=== PATIENT | female | born 1945 | race Caucasian/White ===

== ENCOUNTER 2019-10-01 05:48 | Inpatient (IN) ==
--- NOTE | 2019-10-01 06:19 | EKG Report ---
Test Performed on : 10/01/2019 06:13:20 AM Test Reason : WEAKNESS Blood Pressure : / mmHG Vent. Rate : 062 BPM Atrial Rate : 062 BPM P-R Int : 202 ms QRS Dur : 088 ms QT Int : 446 ms P-R-T Axes : 054 -01 012 degrees QTc Int : 452 ms Normal sinus rhythm. Septal infarct (cited on or before 14-AUG-2016) Abnormal ECG When compared with ECG of 05-OCT-2018 11:29, Questionable change in initial forces of Anterior leads Nonspecific T wave abnormality now evident in Inferior leads Unconfirmed Result
[2019-10-01] MEDS ORDERED: NS 1,000 ML IV ONE (07:16)
[2019-10-01] MEDS ORDERED: SOLU-MEDROL IV ONE (07:16)
[2019-10-01] MEDS ORDERED: ZITHROMAX 500 MG/NS 500 MG/250 ML IVPB IV ONE (07:16)
[2019-10-01] MEDS ORDERED: ROCEPHIN 1 GM in NS 50 ML IV ONE (07:16)
[2019-10-01] MEDS ORDERED: DUONEB (A & A) INH ONE (07:16)
[2019-10-01 07:20] LABS: BASO# 0.01 X1000 (0.0-0.2); BASO% 0.2 % (0.0-0.8); EOS# 0.13 X1000 (0.0-0.7); EOS% 2.6 % (0.0-10.0); HEMATOCRIT 35.4 % (37.0-47.0); LYMPH# 0.63 X1000 (1.2-3.4); LYMPH% 12.5 % (20.5-51.1); MCH 31.5 PG (27-31); MCHC 31.1 g/dL (33-37); MCV 101.4 FL (81-99); MONO# 0.15 X1000 (0.11-0.59); MPV 10.4 FL (7.4-10.4); NEUT# 4.13 X1000 (1.4-6.5); NEUT% 81.7 % (42.2-75.2); PLT 126 X1000 (130-400); RBC 3.49 XMIL (4.2-5.4); RDW 13.5 % (11.5-14.5); WBC 5.05 X1000 (4.8-10.8)
[2019-10-01 07:58] LABS: BE 0.8 mmoll (-3.0-3.0); BLOOD TYPE ARTERIAL; HCO3-(ACT) 25.3 mmoll (20.0-26.0); METHB 0.6 % (0.0-1.5); O2(CT) 11.3 mL/dL (15.0-23.0); PCO2(98.6) 50 mmHg (35-45); SAMPLE BLOOD; SAO2 86.7 % (95.0-100.0); THB 9.5 g/dL (11.5-17.4); pH(98.6) 7.34 (7.35-7.45)
[2019-10-01 07:59] LABS: ALLEN TEST YES; MODALITY CANNULA
[2019-10-01 08:01] LABS: O2HB 84.4 % (95.0-99.0); PO2(98.6) 47 mmHg (60-100)
[2019-10-01 08:05] LABS: CALCIUM 9.6 mg/dL (8.8-10.2); CREATININE 1.8 mg/dL (0.5-0.9); POTASSIUM 4.6 mmol/L (3.5-5.1)
--- NOTE | 2019-10-01 08:31 | PROVIDER DOCUMENTATION ---
HPI-Respiratory General - General Chief Complaint: Cold Symptoms Stated Complaint: "POSS PNA" Time Seen by Provider: 10/01/19 07:04 Source: patient, family Allergies/Adverse Reactions: Patient Allergies Allergy/AdvReac Type Severity Reaction Status Date / Time Sulfa (Sulfonamide Allergy Unknown Verified 10/12/18 07:49 Antibiotics) latex AdvReac RASH Verified 10/12/18 08:03 Home Medications: Home Medication List Medication Instructions Recorded Confirmed Last Taken Type Buspirone [Buspar] 15 mg PO BID 08/05/15 10/01/19 1 Day Ago History ~09/30/19 Carvedilol 12.5 mg PO BID 08/05/15 10/01/19 10/01/19 History Celecoxib [Celebrex] 200 mg PO BID 08/05/15 10/01/19 1 Day Ago History ~09/30/19 Donepezil [Aricept] 10 mg PO HS 08/05/15 10/01/19 1 Day Ago History ~09/30/19 Duloxetine [Cymbalta] 60 mg PO DAILY 08/05/15 10/01/19 1 Day Ago History ~09/30/19 Esomeprazole [Nexium] 40 mg PO DAILY 08/05/15 10/01/19 1 Day Ago History ~09/30/19 Estradiol [Estrace] 1 mg PO DAILY 08/05/15 10/01/19 1 Day Ago History ~09/30/19 Furosemide [Lasix] 40 mg PO DAILY 08/05/15 10/01/19 1 Day Ago History ~09/30/19 Gabapentin [Neurontin] 600 mg PO DAILY 08/05/15 10/01/19 10/11/18 17:00 History Red Yeast Rice 600 mg PO BID 08/05/15 10/01/19 1 Day Ago History ~09/30/19 Spironolactone [Aldactone] 50 mg PO BID 08/05/15 10/12/18 10/12/18 02:00 History Tizanidine HCl [Zanaflex] 4 mg PO BID 08/05/15 10/01/19 1 Day Ago History ~09/30/19 Memantine HCl [Namenda Xr] 28 mg PO QHS 08/12/16 10/01/19 1 Day Ago History ~09/30/19 Cholestyramine (with Sugar) 378 gm PO DAILY 10/05/18 10/01/19 1 Day Ago History [Cholestyramine Powder] ~09/30/19 Iron,Carbonyl [Iron] 65 mg PO BID 10/05/18 10/01/19 1 Day Ago History ~09/30/19 Oxycodone HCl/Acetaminophen 1 each PO PRN PRN 10/05/18 10/01/19 10/11/18 17:00 History [Percocet 10-325 mg Tablet] Aspirin [Ecotrin] 1 tab PO QHS #0 10/13/18 10/01/19 1 Day Ago Rx ~09/30/19 Oxycodone I.r. [Oxy Ir] 10 mg PO Q4-6H PRN PRN #40 capsule 10/13/18 Unknown Rx Rivaroxaban [Xarelto] 10 mg PO Q24H #10 tablet 10/13/18 Unknown Rx Amlodipine [Norvasc] 10 mg PO DAILY 10/01/19 10/01/19 1 Day Ago History ~09/30/19 Levothyroxine Sodium 300 mcg PO QAM 10/01/19 10/01/19 10/01/19 History Levothyroxine Sodium [Levoxyl] 30 mcg PO 10/01/19 Unknown History Spironolactone [Aldactone] 50 mg PO BID 10/01/19 10/01/19 1 Day Ago History ~09/30/19 - History of Present Illness-Resp Nature of Presenting Problem: SOB, wheezing, subjective fevers, chills, cough productive of yellow sputum for 3-4 days, gradually getting worse. Similar symptoms in past with pneumonia. Quality of Pain: reports: aching Severity in ED: reports: mild Onset/Duration: reports: gradual, 4 days ago Timing: reports: still present, constant, changing over time, getting worse Context: reports: recent URI Exposure: reports: illness exposure (severeal friends with URI/PNE) Cough Quality/Degree: reports: productive cough, sputum (yellow) Episode Frequency: occasional episodes Current Respiratory Medication Therapy: Initiated none Modifying Factors: improves with: lying down. worse with: exertion, coughing Associated Symptoms: reports: chest pain/soreness, cough, dizziness, fever/chills, flu-like symptoms, hurts to breathe, muscle/bodyaches, nasal congestion, short of breath, sweaty, wheezing Similar Symptoms Previously?: Yes (PNE) Recently seen or treated by another doctor?: No (Sees [facility]) Review of Systems - Adult - REVIEW OF SYSTEMS - ADULT Constitutional: reports: see HPI, chills, fever, fatique Eyes: reports: no symptoms reported Ears, Nose, Mouth & Throat: reports: no symptoms reported Cardiovascular: reports: no symptoms reported Respiratory: reports: see HPI, cough, dyspnea on exertion, excessive sputum production, shortness of breath, wheezing Gastrointestinal: reports: no symptoms reported Genitourinary: reports: no symptoms reported Musculoskeletal: reports: see HPI, muscle aches, muscle weakness Integumentary: reports: no symptoms reported Neurological: reports: no symptoms reported Psychiatric: reports: no symptoms reported Endocrine: reports: no symptoms reported Hematologic/Lymphatic: reports: no symptoms reported Allergic/Immunologic: reports: no symptoms reported All Other Systems: Reviewed and Negative Past History - Adult - PAST MEDICAL HISTORY-ADULT Review of Records: reports: Old Records Reviewed, Nursing Assessment Review, Medications Reviewed, Social history reviewed & non-contributory. Major Childhood Illnesses: reports: denies history Cardiovascular: reports: HTN Respiratory: reports: bronchitis, pneumonia Gastrointestinal: reports: denies history Obstetrical/Gynecological: reports: denies history Genitourinary: reports: denies history Musculoskeletal: reports: chronic pain (back) Neurological: reports: denies history Psychiatric: reports: depression Endocrine/Immune: reports: thyroid disorder (hypo) Other Conditions: reports: denies history - PRIOR SURGERIES/PROCEDURES Surgical/Procedure History: reports: hysterectomy, back/neck - IMMUNIZATION STATUS Childhood Immunizations: See Nurse Assessment Flu Vaccine: See Nurse Assessment - FAMILY HISTORY Family History: reviewed, not pertinent - SOCIAL HISTORY Smoking: non-smoker Substance Use: none/never Alcohol Use Frequency: rarely Living Situation: family Physical Exam-General - PHYSICAL EXAM-ADULT Initial Vital Signs Reviewed: Yes (VSSAF) - CONSTITUTIONAL General Appearance: mild distress, lethargic - EYES Eyes: PERRL/EOMI (pinpoint pupils), pink conjunctivae, anisocoria - HEAD, EARS, NOSE, MOUTH & THROAT HENMT: normocephalic/atraumatic, moist mucous membranes, normal ENT inspection, pharynx normal - NECK Neck: non-tender, full range of motion, supple, normal inspection - RESPIRATORY Respiratory: chest non-tender, no accessory muscle use, respiratory distress (mild), decreased breath sounds, rhonchi, wheezing, dull on percussion, increased rate - CARDIOVASCULAR Cardiovascular: normal peripheral pulses, regular rate, rhythm, no edema, no JVD , systolic murmur, gallop/S3 - GASTROINTESTINAL (ABDOMEN) Abdominal Exam: normal bowel sounds, non tender, soft, no organomegaly, no pulsatile mass - LYMPHATIC Lymphatic: no adenopathy - MUSCULOSKELETAL Back Exam: no vertebral tenderness, decreased range of motion Extremity: normal range of motion, non-tender, normal inspection, no pedal edema , normal capillary refill Peripheral Pulses: radial (R): 2+, radial (L): 2+ - SKIN Integumentary: normal turgor, warm/dry, pallor - NEUROLOGIC Neurologic: clinical education manager II-XII nml as tested, grossly normal, no motor/sensory deficits - PSYCHIATRIC Psych/Mental Status: normal mood/affect, normal thought content, normal thought process, oriented x 3 Progress - PLAN OF CARE/RESULTS Progress/Plan/Lab Results: Vital Signs - 8 hr 10/01/19 05:53 Temperature 97.9 F Pulse Rate 62 Respiratory Rate 18 Blood Pressure 100/59 O2 Sat by Pulse Oximetry 82 L 10/01/19 07:16 Influenza Screen - Final Nasopharyngeal Laboratory Results - last 24 hr 10/01/19 10/01/19 10/01/19 06:25 06:30 06:30 WBC 5.05 RBC 3.49 L Hgb 11.0 L Hct 35.4 L MCV 101.4 H MCH 31.5 H MCHC 31.1 L RDW Std Deviation 13.5 Plt Count 126 L MPV 10.4 Immature Gran % (Auto) 0.0 Neut % (Auto) 81.7 H Lymph % (Auto) 12.5 L Mcintosh % (Auto) 3.0 Eos % (Auto) 2.6 Baso % (Auto) 0.2 Immature Gran # (Auto) 0.00 Neut # (Auto) 4.13 Lymph # (Auto) 0.63 L Mcintosh # (Auto) 0.15 Eos # (Auto) 0.13 Baso # (Auto) 0.01 Specimen Type Sample Site pH pCO2 pO2 HCO3 Base Excess Oxyhemoglobin ABG O2 Sat (Calculated) ABG O2 Saturation ABG Carboxyhemoglobin ABG Methemoglobin Shalom Test A-a O2 Difference Total Hemoglobin Lactate Blood Gas Modality FiO2 % Sodium 129 L Potassium 4.6 Chloride 90 L Carbon Dioxide 24 L Anion Gap 15 BUN 31 H Creatinine 1.8 H Estimated GFR/1.73 m2 28 BUN/Creatinine Ratio 17 Glucose 87 Calculated Osmolality 265 Calcium 9.6 Troponin T Lwt-Y-Siudxhkxutf Pept 1242 H 10/01/19 10/01/19 06:30 07:48 WBC RBC Hgb Hct MCV MCH MCHC RDW Std Deviation Plt Count MPV Immature Gran % (Auto) Neut % (Auto) Lymph % (Auto) Mcintosh % (Auto) Eos % (Auto) Baso % (Auto) Immature Gran # (Auto) Neut # (Auto) Lymph # (Auto) Mcintosh # (Auto) Eos # (Auto) Baso # (Auto) Specimen Type ARTERIAL Sample Site L RADIAL pH 7.34 L pCO2 50 H pO2 47 L* HCO3 25.3 Base Excess 0.8 Oxyhemoglobin 84.4 L* ABG O2 Sat (Calculated) 11.3 L ABG O2 Saturation 86.7 L ABG Carboxyhemoglobin 1.90 ABG Methemoglobin 0.6 Shalom Test YES A-a O2 Difference 90.0 Total Hemoglobin 9.5 L Lactate 0.60 Blood Gas Modality CANNULA FiO2 % 28.0 Sodium Potassium Chloride Carbon Dioxide Anion Gap BUN Creatinine Estimated GFR/1.73 m2 BUN/Creatinine Ratio Glucose Calculated Osmolality Calcium Troponin T < 0.010 Qfl-Y-Wxxfchyocqj Pept Orders Category Date Time Status LUNG SCAN / VQ [NM] Stat Exams 10/01/19 08:34 Ordered cxr [CHEST-1 VIEW] [RAD] Stat Exams 10/01/19 06:19 Taken ABG [RESP] Routine Lab 10/01/19 07:48 Completed BASIC METABOLIC PANEL [CHEM] Stat Lab 10/01/19 06:25 Completed BLOOD CULTURE [BLDCUL] Stat Lab 10/01/19 06:40 Received CBC WITH ELECTRONIC DIFF [HEME] Stat Lab 10/01/19 06:30 Completed INFLUENZA SCREEN A/B Stat Lab 10/01/19 07:16 Completed LACTATE, PLASMA [CHEM] Stat Lab 10/01/19 06:40 Ordered PRO B-NATRIURETIC PEPTIDE Stat Lab 10/01/19 06:30 Completed TROPONIN T Stat Lab 10/01/19 06:30 Completed 0.9% Sodium Chloride Inj [Ns] 1,000 ml Med 10/01/19 07:16 Discontinued IV 999 mls/hr Albuterol 2.5MG/Ipratrop 0.5MG [Duoneb (A & A)] Med 10/01/19 07:16 Disconti nued 9 ml INH NOW ONE Azithromycin 500 mg/Ns [Zithromax 500 mg/Ns] Med 10/01/19 07:16 Discontinued 500 mg in 250 ml IV NOW CefTRIAXONE [Rocephin] 1 gm Med 10/01/19 07:16 Discontinued 0.9% Sodium Chloride Inj [Ns] 50 ml IV NOW Methylprednisolone Sod Succ [Solu-Medrol] Med 10/01/19 07:16 Discontinued 125 mg IV NOW ONE Aerosol Treatments Routine Oth 10/01/19 07:16 Active Aerosol Treatments Stat Oth 10/01/19 07:16 Active EKG [EKG] Stat Ther 10/01/19 06:04 Draft Result Diagrams: 10/01/19 06:30 10/01/19 06:25 - REASSESSMENT Reassessment #1 Time Reassessed: 08:40 Status: improving (Given duoneb x 3, oxygen by NC increased from 2L to 4L to bring sats greater than 91%, given IVF bolus, and also given Vanco/zosyn. Patient is septic, but not severe sepsis, and hypoxic. Will need admission) - EKG 1 Time of EKG reading by physician:: 07:00 (initial read by Dr. Castellanos at 0620) EKG Read and Signed by:: Andriy Kearns EKG Interpretation (*Must complete 3 of following elements*): Abnormal Rate: 62 Rhythm: NSR [place]: normal QRS: Q Waves present (septal leads (V1/V2)) [place] Interval: prolonged (first degree av block) ST Wave: non-specific ST changes - XRAY 1 XRAY Study: Chest Impression: Abnormal (Read by me at 0800, RML pneumonia, borderline CM, tortuous aorta, evette rods lower T-spine/L-spine.) - CONSULTS/PCP/HOSPITALIST Notification #1 *Consult/PCP/Hospitalist*: TAMIKA Taylor Time Discussed: 08:37 Consult Disposition: Will see in ED, Admit Departure - Departure Date of Disposition Decision: 10/01/19 Time of Disposition Decision: 08:45 DIAGNOSIS: Hypoxemia requiring supplemental oxygen Right lower lobe pneumonia Qualifiers: Pneumonia type: due to unspecified organism Qualified Code(s): J18.1 - Lobar pneumonia, unspecified organism Sepsis without acute organ dysfunction Qualifiers: Sepsis type: sepsis due to unspecified organism Qualified Code(s): A41.9 - Sepsis, unspecified organism Disposition: ADMITTED INPATIENT 09 Certified Medical Emergency: Emergent Condition: Stable Referrals and Follow-Ups: Khai Wall MD [Primary Care Provider] - - Critical Care Note This patient required my direct & personal management of CC.: Yes Total Time (mins): 35 (management of respiratory distress/sepsis/hypoxia) Critical Care Statement: This patient required my direct personal management to treat or rule out processes, the absence of which, could potentiallly result in sudden, clinically significant life or limb threatening deterioration. Attestation - Physician/ LOUISE Attestation Patient care was provided by Advanced Practice Provider:: No The physician spent face to face time with patient:: Yes Advanced Practice Provider documentation review:: Supervising physician onsite and consulted in the evaluation and care of this patient. The physician did have a face to face encounter with the patient.
[2019-10-01] MEDS ORDERED: ALDACTONE PO SCH (09:00)
[2019-10-01] MEDS: CYMBALTA PO SCH ×2 (09:00→12:50)
[2019-10-01] MEDS: PATIENT'S OWN MED PO SCH ×2 (09:00→20:37)
[2019-10-01] MEDS: COREG PO SCH ×2 (09:00→20:36)
[2019-10-01] MEDS ORDERED: NEURONTIN PO SCH ×2 (09:00→11:46)
[2019-10-01] MEDS ORDERED: ROCEPHIN 1 GM in NS 50 ML IV SCH (10:00)
--- NOTE | 2019-10-01 10:00 | Diag Imaging Result Doc PS360 ---
EXAM: CHEST-1 VIEW - 10/01/2019 HISTORY: dyspnea TECHNIQUE: Portable chest one view COMPARISON: 11/30/2016 FINDINGS: Heart size appears upper normal. There is infiltrate on the right which is most prominent at the suprahilar and infrahilar regions. There is possible infrahilar infiltrate on the left. There is no substantial pleural effusion or pneumothorax identified. There are metallic spinal rods noted at the lower thoracic spine. IMPRESSION: Infiltrates which are most prominent at the suprahilar and infrahilar regions on the right. These are suspicious for pneumonia, although pulmonary edema may also be a consideration. Electronically signed by Karl Diallo 10/01/2019 9:57 AM
[2019-10-01] MEDS: DUONEB (A & A) INH SCH ×4 (11:43→23:16)
[2019-10-01] MEDS: PERCOCET-10 PO PRN ×2 (12:48→22:01)
[2019-10-01] MEDS: NEXIUM PO SCH (12:49)
[2019-10-01] MEDS: ESTRACE PO SCH (12:49)
[2019-10-01] MEDS: ZANAFLEX PO SCH ×2 (12:50→20:37)
[2019-10-01] MEDS: BUSPAR PO SCH ×2 (12:50→20:37)
--- NOTE | 2019-10-01 12:52 | HISTORY AND PHYSICAL ---
PRIMARY CARE PHYSICIAN: Dr. Wall CHIEF COMPLAINT: Cough. HISTORY OF PRESENT ILLNESS: Ms. Pricilla Hedrick is a 73-year-old female with a medical history of chronic back pain on chronic Percocet 10 use, also dementia, hypertension, hypothyroidism, who states around 2 or 3 days ago she noticed she was starting to have a cough. It was nonproductive, and then her noticed last night that her chest started having some crackling sounds, and they brought her in today. Chest x-ray reveals that she has a right suprahilar and infrahilar region pneumonia, possible pulmonary edema, and with definite hypoxia. Room air saturations were reported to be 82% and with 6 L of oxygen, it has only come up to about 90%, 91%, and 92%. She denies any chest pain. No fever or chills. No dizziness or lightheadedness. No coughing up colors, but she is retaining a little CO2, so I question whether she may have an undiagnosed history of COPD. PAST MEDICAL HISTORY: 1. Chronic pain with Percocet use. 2. Dementia. 3. Hypertension. 4. Hypothyroidism. 5. Depression. 6. Right leg melanoma with excision. 7. In 2016, echocardiogram was performed with an ejection fraction of 36% and a stress related cardiomyopathy or takotsubo cardiomyopathy with impaired left ventricular relaxation. PAST SURGICAL HISTORY: 1. Right leg melanoma excision. 2. Left knee replacement. 3. Hysterectomy. 4. Back surgery. SOCIAL HISTORY: Denies tobacco, alcohol or illicit drug use. She lives at home with her . She gets around by holding on to his arm, but otherwise there are no assistive devices. FAMILY HISTORY: Mother had multiple myeloma. Father had Alzheimer's. ALLERGIES: Sulfa and latex. HOME MEDICATIONS: 1. Namenda 28 mg p.o. nightly. 2. Spironolactone 50 mg p.o. b.i.d. 3. Aricept 10 mg p.o. nightly. 4. BuSpar 15 mg p.o. twice daily. 5. Coreg 12.5 mg p.o. twice daily. 6. Celebrex 200 mg p.o. twice daily. 7. Cholestyramine 378 g p.o. daily. 8. Cymbalta 60 mg p.o. daily. 9. Estradiol 1 mg p.o. daily. 10.Iron 65 mg p.o. twice daily. 11.Lasix 40 mg p.o. daily. 12.Synthroid 300 mcg p.o. daily. 13.Neurontin 600 mg p.o. daily. 14.Nexium 40 mg p.o. daily. 15.Norvasc 10 mg p.o. daily. 16.Percocet 10 one tab p.o. t.i.d. p.r.n. 17.Red yeast rice 600 mg p.o. twice daily. 18.Zanaflex 4 mg p.o. twice daily. 19.Aspirin 81 mg p.o. nightly. REVIEW OF SYSTEMS: A 14-point review of systems are complete, and all are negative except for those mentioned in the above HPI, and she has noticed that she has lower extremity swelling. PHYSICAL EXAMINATION: VITAL SIGNS: Temperature is 97.9, heart rate 62, respiratory rate 18, blood pressure 100/59, O2 saturation was 92% on 6 L nasal cannula, 82% on room air. GENERAL: Ms. Pricilla Hedrick is a 73-year-old female. She is in no acute distress. She is able to answer questions appropriately. HEENT: Atraumatic and normocephalic. Pupils are equal, round and reactive to light. Extraocular movements were intact. Mucous membranes are dry. NECK: Trachea midline. CARDIOVASCULAR: S1, S2. Regular rate and rhythm. No rubs, gallops or murmurs. She has 1+ lower extremity edema. Two plus dorsalis pedal pulses are radial pulses. Negative for JVD or carotid bruits. PULMONARY: Crackles throughout, almost rhonchi in the right base posteriorly. She is tolerating 6 L of nasal canal, and her pO2 is still slightly on the lower side. GASTROINTESTINAL: Soft, nontender, round. Positive bowel sounds x4. EXTREMITIES: Moves all extremities equally with a decreased range of motion. NEUROLOGICAL: Alert and oriented x3. Follows commands. Sensory is intact. SKIN: Warm, dry and intact but some bruising in the lower extremities. DIAGNOSTIC DATA: White blood cells 5000, hemoglobin 11, hematocrit 35.4, platelet count 126. ABG shows pH of 7.34, pCO2 of 50, pO2 of 47, bicarb 25, base excess 0.8, saturation 84%. Lactate is 0.6. Sodium 129, potassium 4.6, BUN is 31, creatinine 1.8, glucose 87, calcium 9.6. Troponin less than 0.01. ProBNP is 1242. Serum lactate is 1.3. IMAGING: Chest x-ray showed infiltrates were most prominent at the suprahilar and infrahilar regions on the right, suspicious for pneumonia. It could also be pulmonary edema. EKG shows sinus rhythm, rate 62, QTC is 452. ASSESSMENT AND PLAN: 1. Right lower lobe pneumonia, community acquired. She will be on antibiotics, nebulizers. We will get a sputum culture. 2. Acute hypoxemic hypercarbic respiratory failure. Again, she is on nebulizers, do incentive spirometer, and we will do IV steroids. 3. History of congestive heart failure systolic also with a little diastolic included and history of takotsubo cardiomyopathy in 2016. We may repeat an echocardiogram just to evaluate her heart function. She has lower extremity edema, and then there might be a little bit of fluid on the lungs as well. She is on Lasix at home. Continue all of her home medications except holding on the Lasix for now, we may have to give some though. She does have some acute kidney injury with this. 4. Acute kidney injury. BUN is 31, creatinine is 1.8. She is getting some slow IV fluids for now, may have to stop that possibly. She does have low sodium, low chloride. 5. Chronic back pain. Percocet is resumed. 6. Hypertension. Given the acute kidney injury, we will hold off on the Norvasc. 7. Depression. Continue home medications for that. 8. Dementia. Continue home medications. 9. DVT prophylaxis with SCDs. Dictated by TAMIKA Tom for Jovanny Benavides MD cc: TAMIKA Tom MD
[2019-10-01] MEDS: NS 1,000 ML IV SCH ×2 (12:54→23:13)
--- NOTE | 2019-10-01 12:59 | Diag Imaging Result Doc PS360 ---
EXAM: LUNG SCAN / VQ - 10/01/2019 HISTORY: Dyspnea, elevated creat TECHNIQUE: Lung ventilation/perfusion scan. Ventilation images performed using 35.7 mCi technetium 99m DTPA aerosol inhaled. Perfusion images performed using 5.5 mCi technetium 99m MAA administered intravenously. Ventilation perfusion images are obtained in multiple projections over the lungs. COMPARISON: Exam is correlated with the 10/01/2019 one view chest radiograph FINDINGS: Ventilation is mildly heterogeneous. Perfusion is more homogeneous. There is no discrete segmental perfusion defect identified. There is no ventilation/perfusion mismatch (area which is ventilated but not perfused) identified. IMPRESSION: Low probability for pulmonary embolism. Electronically signed by Karl Diallo 10/01/2019 12:56 PM
--- NOTE | 2019-10-01 15:12 | HISTORY AND PHYSICAL ---
ADDENDUM: Patient seen and examined by me [id number]. All the laboratory, vital signs, and images were reviewed. The patient presented to the emergency department with a chief complaint of shortness of breath and cough. She was found to be hypoxemic. She has a history of chronic pain and multiple back surgeries, dementia, hypertension, hypothyroidism, depression. I checked an echocardiogram done on 08/18/2016 that showed the possibility of stress-related cardiomyopathy or Takotsubo-type cardiomyopathy. The ejection fraction was around 36%, with severe impairment of the [id number]-[id number]-[id number] segment anteriorly. Lateral, inferior, and septal ashley, and the apex was akinetic. I had a conversation with the patient and the , who is at the bedside, and they both denied any kind of heart problems or lung problems. As per the , she has been wheezing during the night, but they denied tobacco use. Apparently, she gets around by holding on to his arm. Apparently, she started having some cough that is dry, nonproductive for the past couple of days, especially during the night, and wheezing. Chest x-ray showed right suprahilar and infrahilar region pneumonia. She is hypoxemic, but better with oxygen supplementation. ABGs showed hypoxemia and elevated CO2. Creatinine has been elevated since 2016. It has been mostly between 1 and 1.1. Today, it is 1.8, and clinically she looks dehydrated. I will stop the diuretics today. She has been placed on Lasix and spironolactone, and I will give her some IV fluids. Also, she has been started on steroids and antibiotics as well. She received ceftriaxone and one dose of azithromycin in the emergency department. I will continue with both. On my physical exam, she seems to be sleepy but arousable, oriented x3, but she is not answering all of my questions. She does have a history of dementia as documented, and she has been on medications for that, donepezil and Namenda, which I will continue. Also, her MCV is elevated. I will get an anemia workup. She does have some scattered wheezing bilaterally and some crepitus throughout, especially at the bases. There is 1+ lower extremity edema, which looks chronic. Will continue with gentle IV fluids. I will get an echocardiogram, and I will recheck her lab work in the morning. I agree with the rest of the nurse practitioner's assessment and plan. cc: Jovanny Benavides MD
[2019-10-01] MEDS: QUESTRAN PO SCH (16:38)
[2019-10-01] MEDS: SOLU-MEDROL IV SCH ×2 (16:55→23:08)
[2019-10-01] MEDS: PULMICORT INH SCH (19:17)
[2019-10-01] MEDS: ASPIRIN EC PO SCH (20:36)
[2019-10-01] MEDS: ARICEPT PO SCH (20:37)
[2019-10-01] MEDS: NAMENDA XR PO SCH (20:51)
[2019-10-02] MEDS: NS 1,000 ML IV SCH ×3 (01:33→14:41)
[2019-10-02] MEDS: DUONEB (A & A) INH SCH ×6 (03:19→23:01)
[2019-10-02] MEDS: SOLU-MEDROL IV SCH ×2 (04:05→10:21)
[2019-10-02 04:43] LABS: ALLEN TEST YES; BE -2.2 mmoll (-3.0-3.0); BLOOD TYPE ARTERIAL; HCO3-(ACT) 23.2 mmoll (20.0-26.0); METHB 0.8 % (0.0-1.5); O2(CT) 12.8 mL/dL (15.0-23.0); O2HB 93.3 % (95.0-99.0); PCO2(98.6) 48 mmHg (35-45); PO2(98.6) 65 mmHg (60-100); SAMPLE BLOOD; SAO2 95.3 % (95.0-100.0); THB 9.7 g/dL (11.5-17.4); pH(98.6) 7.31 (7.35-7.45)
[2019-10-02 04:48] LABS: MODALITY CANNULA
[2019-10-02] MEDS: NEXIUM PO SCH (06:00)
[2019-10-02 06:55] LABS: IRON SATURATION 8 %; TIBC 213 ug/dL; TOTAL IRON 16 ug/dL (49-151); UNBOUND IRON 197 ug/dL (112-346)
[2019-10-02 07:07] LABS: FERRITIN 338 ng/mL (13-150)
[2019-10-02 07:09] LABS: AGAP 8; ALBUMIN 3.5 g/dL (3.5-5.0); ALKALINE PHOSPHATASE 109 U/L (32-104); BUN 27 mg/dL (8-22); CALCIUM 8.8 mg/dL (8.8-10.2); CHLORIDE 99 mmol/L (98-107); COSMO 274; CREATININE 1.2 mg/dL (0.5-0.9); ESTIMATED GFR 44; GLUCOSE 150 mg/dL (70-104); GOT 20 U/L (10-30); GPT 10 U/L (10-36); POTASSIUM 4.9 mmol/L (3.5-5.1); SODIUM 133 mmol/L (136-145); TCO2 26 mmol/L (25-35); TOTAL BILIRUBIN < 0.15 mg/dL (0.20-1.00); TOTAL PROTEIN 7.1 g/dL (6.3-8.3)
[2019-10-02 07:12] LABS: HEMATOCRIT 29.4 % (37.0-47.0); HEMOGLOBIN 9.2 g/dL (12.0-16.0); LYMPH# 0.56 X1000 (1.2-3.4); LYMPH% 6.9 % (20.5-51.1); MCH 31.6 PG (27-31); MCHC 31.3 g/dL (33-37); MONO# 0.11 X1000 (0.11-0.59); MONO% 1.4 % (1.7-9.3); MPV 10.4 FL (7.4-10.4); NEUT# 7.46 X1000 (1.4-6.5); NEUT% 91.7 % (42.2-75.2); PLT 188 X1000 (130-400); RBC 2.91 XMIL (4.2-5.4); RDW 13.1 % (11.5-14.5); WBC 8.13 X1000 (4.8-10.8)
[2019-10-02 07:36] LABS: BANDS 4 % (0-1); LYMPHS 6 % (21-51); SEGS 90 % (42-75)
[2019-10-02] MEDS: PULMICORT INH SCH ×2 (08:00→19:41)
[2019-10-02] MEDS: QUESTRAN PO SCH (10:20)
[2019-10-02] MEDS: PERCOCET-10 PO PRN ×3 (10:20→23:32)
[2019-10-02] MEDS: SYNTHROID PO SCH (10:20)
[2019-10-02] MEDS: ROCEPHIN 1 GM in NS 50 ML IV SCH (10:21)
[2019-10-02] MEDS: ZANAFLEX PO SCH ×2 (10:22→20:46)
[2019-10-02] MEDS: BUSPAR PO SCH ×2 (10:22→20:46)
[2019-10-02] MEDS: PATIENT'S OWN MED PO SCH ×2 (10:22→20:47)
[2019-10-02] MEDS: COREG PO SCH ×2 (10:22→20:46)
[2019-10-02] MEDS: CYMBALTA PO SCH (10:22)
[2019-10-02] MEDS: ESTRACE PO SCH (10:23)
[2019-10-02] MEDS: ZITHROMAX 500 MG/NS 500 MG/250 ML IVPB IV SCH (14:40)
[2019-10-02] MEDS ORDERED: LASIX IV ONE (15:35)
--- NOTE | 2019-10-02 16:13 | PROGRESS NOTE ---
DATE: 10/02/2019 SUBJECTIVE: Today Ms. Hedrick refers to be doing slightly better. Still has some cough, but shortness of breath has improved. OBJECTIVE: Vital signs: Blood pressure is 140/67, pulse of 78, respirations 20, temperature is 97.5 degrees. General exam: Ms. Hedrick is a 73-year-old elderly female. She is in bed. She is in mild respiratory distress. She is speaking in short sentences. HEENT: Mucosa is pink and moist. Anicteric. Acyanotic. Neck: Supple. There is positive JVD. Chest: Air entry is bilaterally reduced. Crackles in the posterior lung younger. Cardiovascular: Regular rate and rhythm. GI/Abdomen: Soft, it is distended. There is a positive fluid shift dullness. Extremities: About 2+ pedal edema. CLINICAL MICROBIOLOGIST: Patient is awake, alert, oriented. There is no focal neurological deficit. LABORATORY DATA: WBC is 8.13, hemoglobin is 9.2, platelet count of 182. Chemistry is also reviewed. Creatinine is down to 1.2. Iron studies shows percent saturation of 18. The patient's pCO2 has improved down to 48, and PO2 is also normalized to 65. ASSESSMENT: 1. Acute hypoxemic respiratory failure. 2. Pulmonary edema, questionable congestive heart failure. 3. Suspected multifocal pneumonia. 4. Macrocytic anemia with normal B 12 and folate. Thyroid stimulating hormone is also normal. 5. Iron deficiency. 6. Hypothyroidism. 7. Acute on chronic renal failure. Patient's creatinine is down to 1.2. PLAN: So In general, this morning Ms. Hedrick seems to be more congested. I have discontinued her IV fluids. She does not have a white count, so I am not 100% sure about the infectious etiology of her presentation. I will get a CAT scan of the lung. I think she probably is more in congestive heart failure with possibly superimposed pneumonitis likely. We are waiting on the echocardiogram. Ms. Hedrick had an echo here in 2016 which suggested ejection fraction of 36%. We will follow up on the new one. cc: Taj Iglesias MD
--- NOTE | 2019-10-02 16:25 | Diag Imaging Result Doc PS360 ---
EXAM: CT THORAX W/O CONTRAST 10/02/2019 HISTORY: SOB TECHNIQUE: This exam was performed using automated exposure control, adjustment of mA or kV according to patient size, and/or use of iterative reconstruction technique. COMMENT: The current study is compared with 08/21/2016. There are bilateral pleural effusions slightly more on the right than the left. There is also some apparent fluid in the right subphrenic space. There is calcific and noncalcific hilar adenopathy and some fairly large nodes are seen in the right paratracheal and aorticopulmonary window with a node in the latter location measuring almost 17 mm in greatest dimension. This is similar in appearance to the previous study. There is some consolidation and air bronchograms in the left lower lobe medially and posteriorly. There are patchy alveolar and interstitial opacities in the upper lung zones particularly the right upper lobe. This is worse but in a similar distribution to groundglass opacities which were demonstrated on the previous examination. The lower lobe opacities were not present previously. There is some groundglass opacity and coarse linear opacity in the lingula and right middle lobe. There is increased interstitial markings in the upper lung zones which were not present at the time the previous study and may be indicative of pulmonary edema. There has been orthopedic fusion of the lower thoracic spine. No acute bony abnormalities are present. IMPRESSION: Worsened pulmonary parenchymal opacities and pulmonary edema. Mediastinal and hilar adenopathy similar to previous study. Bilateral pleural effusions and mild ascites. Electronically signed by Jacinto Valdez 10/02/2019 4:23 PM
--- NOTE | 2019-10-02 17:24 | CARDIOLOGY CONSULTATION ---
DATE: 10/02/2019 HISTORY OF PRESENT ILLNESS: Ms. Hedrick is a 73-year-old lady with multiple medical problems. She has chronic back pain. Has had back surgery and knee surgery last year. Since then her states that she has not been doing well. She has had chronic shortness of breath which has been there for a couple of years. However, she over the last 2 to 3 days has noticed increasing shortness of breath with cough which was nonproductive and he did hear crackling sounds as well. Chest x-ray revealed right suprahilar, infrahilar region pneumonia, possible pulmonary edema. The patient was admitted. She denies any chest pain. There are no palpitations. Exercise capacity is significantly limited. PAST MEDICAL HISTORY: 1. Hypertension. 2. Hypothyroidism. 3. Depression. 4. Has had chronic shortness of breath. CT scan in 2016 revealed nonspecific bilateral alveolar infiltrates in the upper zone. 5. History of cardiomyopathy. 6. Coronary artery disease. Last cardiac catheterization 08/21/2016. Left main was normal. LAD mid 30%, diagonal ostial 60%, circumflex ostial 30%, RCA proximal 30%, PDA normal. Ejection fraction 50%. Echocardiogram in 2016 ejection fraction 40 to 45%. 7. Dementia. 8. Chronic pain. PAST SURGICAL HISTORY: 1. Right leg melanoma excision. 2. Left knee replacement. 3. Hysterectomy. 4. Back surgery. ALLERGIES: She is allergic to sulfonamides and latex. HOME MEDICATIONS: Namenda 28, spironolactone 50 b.i.d., Aricept 10, BuSpar 15, Coreg 12.5, Celebrex, Cymbalta 60, Lasix 40, Synthroid 300 mcg, Neurontin 600 mg, Nexium 40 mg daily, Norvasc 10 mg daily, enteric-coated aspirin. REVIEW OF SYSTEM: Fourteen point review of systems was done.Central nervous system: No focal weakness to suggest a CVA or TIA. system: There is no dysuria or hematuria. Respiratory System: As above. Cardiovascular System: As above. GI: There is no nausea, vomiting, or diarrhea. PHYSICAL EXAMINATION: Vital Signs: Blood pressure 100/59. Cardiovascular system: Jugular venous pressure was normal. First and second heart sounds were heard. Respiratory system: Bibasilar expiratory wheeze and scattered crepitations. Oxygen saturation was 92% on 6 L when she came in. Abdomen: Soft, nontender. There was no guarding or rigidity. Bowel sounds were heard. Central nervous system: Alert, was moving all 4 extremities. Detailed central nervous system examination not performed. LABORATORY EXAMINATION: WBC 8.13, hemoglobin 9.2, a dropped from 11 on 10/01/2019, MCV 100, platelet count of 188,000. Blood gases, pH 7.31 pCO2 50, PO2 47, base excess 25. Sodium 133, potassium 4.9, BUN 27, creatinine 1.8. Cardiac enzymes negative. Alkaline phosphatase 109. Ferritin 338. TSH 0.58. Folate 22. ProBNP 1,242. She had a V/Q scan done which was negative for pulmonary embolism. She had a chest x-ray done which revealed infiltrates, most prominent at the suprahilar and infrahilar regions on the right, suspicious for pneumonia, cannot rule out pulmonary edema. She had a CT scan done, report pending. ASSESSMENT AND PLAN: 1. Ms. Pricilla Hedrick is a 73-year-old lady with minimal coronary artery disease, mild LV dysfunction in the past, chronic, nonspecific bilateral alveolar infiltrates in 2016, history of hypertension, dementia, hypothyroidism, has history of back surgeries and knee surgery last year. Since then, she has been having very restricted mobility. Is admitted with worsening shortness of breath in the last couple of days associated with cough and wheezing. She has been started on antibiotics, received ceftriaxone and Zithromax. From a cardiac standpoint, we will get an echocardiogram to reassess cardiac and valvular function. 2. Cardiac enzymes negative. No chest pain. Electrocardiogram did not reveal any ST-T changes to suggest ischemia. She had LV dysfunction in the past, in 2016. By echocardiogram ejection fraction was 40 to 45% then and by cardiac catheterization EF was 50%. Would recommend currently continuing with her beta blockers and spironolactone. She has received 1 dose of Lasix 40 mg IV. Creatinine on admission was 1.8. It is 1.2 today. 3. She had been on spironolactone 50 mg twice daily. Would recommend holding the spironolactone. I had a discussion with the radiologist. She has interstitial features of pulmonary edema with bilateral infiltrates which have been present since the CT scan in 2016. These could be chronic changes associated with lymphadenopathy as well. For the present, we will continue with beta blockers and Lasix. This could be a chronic inflammatory process in the lungs as well. Will consult pulmonology as changes in the CT scan have been present since 2016. We will get a sedimentation rate and C-reactive protein. 4. She is anemic. This is likely to be anemia of chronic disease given her elevated MCV. Thank you for the consult. We will follow hospital course. cc: Yosvany Flores MD
--- NOTE | 2019-10-02 18:52 | ECHO REPORT ---
ORDER DATE: 10/01/2019 INDICATIONS: CHF, shortness of breath, dementia, hypertension. FINDINGS: 1. Right atrium appears mildly enlarged at 4 cm. 2. Mild tricuspid regurgitation. RV systolic pressure of 49. 3. Normal RV size and systolic function. 4. No significant pulmonic insufficiency. 5. Severe left atrial enlargement with a volume index of 45. 6. No mitral valve prolapse. Moderate to moderately severe mitral regurgitation. No mitral stenosis. 7. Normal LV size, end-diastolic dimension of 4.7 cm. Normal wall thicknesses with a posterior and interventricular septal wall thickness of 0.9 and 1.0 cm respectively. Normal LV systolic function. Estimated EF of 55% to 60% with normal wall motion. 8. Aortic valve opens well. There is no evidence of stenosis or insufficiency. 9. Aorta appears normal in visualized segments. 10. No pericardial effusion seen. cc: MD Claudia Xie CRNP
[2019-10-02] MEDS: NAMENDA XR PO SCH (20:46)
[2019-10-02] MEDS: ARICEPT PO SCH (20:46)
[2019-10-02] MEDS: ASPIRIN EC PO SCH (20:46)
[2019-10-03] MEDS: DUONEB (A & A) INH SCH ×6 (03:16→23:40)
[2019-10-03 06:19] LABS: BASO# 0.01 X1000 (0.0-0.2); BASO% 0.1 % (0.0-0.8); HEMATOCRIT 31.7 % (37.0-47.0); HEMOGLOBIN 9.8 g/dL (12.0-16.0); IMM GRAN# 0.04 X1000 (0.0-0.04); IMM GRAN% 0.3 % (0.0-0.5); LYMPH% 5.5 % (20.5-51.1); MCH 31.3 PG (27-31); MCHC 30.9 g/dL (33-37); MCV 101.3 FL (81-99); MONO% 3.9 % (1.7-9.3); NEUT# 11.52 X1000 (1.4-6.5); NEUT% 90.2 % (42.2-75.2); PLT 220 X1000 (130-400); RBC 3.13 XMIL (4.2-5.4); RDW 13.3 % (11.5-14.5); WBC 12.77 X1000 (4.8-10.8)
[2019-10-03] MEDS: NEXIUM PO SCH (06:20)
[2019-10-03] MEDS: SYNTHROID PO SCH (06:20)
[2019-10-03 06:39] LABS: AGAP 11; ALBUMIN 3.6 g/dL (3.5-5.0); ALKALINE PHOSPHATASE 101 U/L (32-104); BUN 23 mg/dL (8-22); CHLORIDE 97 mmol/L (98-107); COSMO 277; CREATININE 0.9 mg/dL (0.5-0.9); ESTIMATED GFR > 60; GLUCOSE 117 mg/dL (70-104); GOT 25 U/L (10-30); GPT 12 U/L (10-36); POTASSIUM 3.8 mmol/L (3.5-5.1); SODIUM 136 mmol/L (136-145); TCO2 28 mmol/L (25-35); TOTAL BILIRUBIN 0.17 mg/dL (0.20-1.00); TOTAL PROTEIN 7.3 g/dL (6.3-8.3)
[2019-10-03] MEDS: PERCOCET-10 PO PRN ×3 (07:33→22:03)
[2019-10-03] MEDS: PULMICORT INH SCH ×2 (07:40→19:32)
--- NOTE | 2019-10-03 07:43 | PULMONOLOGY CONSULTATION ---
DATE: 10/02/2019 REASON FOR CONSULTATION: Chronic lung disease. HISTORY OF PRESENT ILLNESS: Ms. Hedrick is a 73-year-old, white female, never smoker, with a component of chronic pain syndrome with extensive back surgeries, dementia, who was noted to have a cough and rattle along with increasing confusion over the last several days. The patient was brought to the emergency room complaining of fevers, chills, and cough. Chest x-ray revealed right greater than left pulmonary infiltrates. A CT scan of the thorax was performed which revealed bilateral pulmonary infiltrates with mild effusions and mild ascites, and stable hilar adenopathy. PAST MEDICAL HISTORY/PROBLEM LIST: 1. Prior pneumonia. 2. Chronic pain syndrome due to significant spinal disease and surgeries required. 3. Dementia. 4. Hypertension. 5. Hypothyroidism. 6. History of melanoma. 7. Depression. 8. History of takotsubo cardiomyopathy. 9. Status post left knee replacement. 10. Status post hysterectomy. 11. Gastroesophageal reflux disease, on chronic proton pump inhibitor. SOCIAL HISTORY: The patient is a never smoker. She denies alcohol use. FAMILY HISTORY: Positive for Alzheimer's and multiple myeloma. REVIEW OF SYSTEMS: As reported in the HPI but is otherwise negative. PHYSICAL EXAMINATION: General: Reveals a well-developed, well-nourished female who is awake, alert, and conversant, in no distress. She has been afebrile during this hospitalization. BP 130/65, heart rate 75, respiratory rate 18, oxygen saturation 93%. HEENT: Pupils are equal and reactive. Oropharynx appears clear. Neck: Supple. Chest: Reveals rhonchi bilaterally. Cardiac Examination: S1-S2. Abdomen: Soft. Extremities: Without edema. LABORATORIES: Influenza screen is negative. Blood cultures are pending. White blood count 8.13, hemoglobin 9.2, platelet count 188,000. Arterial blood gas reveals a pH of 7.34, pCO2 of 50, PO2 of 47. IMPRESSION: A 73-year-old with reflux, chronic pain syndrome, component of dementia, who presents with: 1. Bilateral pneumonia. 2. Acute hypoxemic respiratory failure. 3. Confusion/encephalopathy, which is improving. RECOMMENDATIONS: 1. I agree with antibiotics. Consider expanding gram-negative coverage if she does not clinically improve rapidly. 2. Continue bronchodilators as you are doing. 3. Discussed and encouraged reflux precautions. 4. Wean oxygen as tolerated. cc: Kel So MD
[2019-10-03 07:50] LABS: BANDS 2 % (0-1); HYPOCHROM 1+; LYMPHS 1 % (21-51); MONO 1 % (1-9); SEGS 96 % (42-75)
[2019-10-03] MEDS: ROCEPHIN 1 GM in NS 50 ML IV SCH (08:10)
[2019-10-03] MEDS: LASIX IV SCH (08:10)
[2019-10-03] MEDS: ZANAFLEX PO SCH ×2 (08:10→21:14)
[2019-10-03] MEDS: COREG PO SCH ×2 (08:10→21:14)
[2019-10-03] MEDS: BUSPAR PO SCH ×2 (08:10→21:14)
[2019-10-03] MEDS: CYMBALTA PO SCH (08:10)
[2019-10-03] MEDS: QUESTRAN PO SCH (08:10)
[2019-10-03] MEDS: ESTRACE PO SCH (08:10)
[2019-10-03] MEDS: PATIENT'S OWN MED PO SCH ×2 (08:11→21:14)
[2019-10-03] MEDS ORDERED: LASIX IV SCH (09:00)
[2019-10-03 09:11] LABS: URINE SOURCE CLEAN CATCH
[2019-10-03 09:34] LABS: BILIRUBIN URINE NEGATIVE (NEGATIVE); BLOOD URINE NEGATIVE (NEGATIVE); COLOR STRAW; GLUCOSE URINE NEGATIVE (NEGATIVE); KETONE URINE NEGATIVE (NEGATIVE); LEUKOCYTES URINE NEGATIVE (NEGATIVE); NITRITE URINE NEGATIVE (NEGATIVE); PROTEIN URINE TRACE mg/dL (NEGATIVE); SP GRAVITY URINE 1.007; TURBIDITY URINE CLEAR (CLEAR); UROBILINOGEN URINE NORMAL (NORMAL)
[2019-10-03 09:36] LABS: UR EPITHELIAL CELLS <10 /HPF (<10); URINE BACTERIA NEGATIVE /HPF; URINE RBC <10 /HPF (<10); URINE WBC <10 /HPF (<10)
[2019-10-03] MEDS: ZITHROMAX 500 MG/NS 500 MG/250 ML IVPB IV SCH (12:05)
[2019-10-03] MEDS: ARICEPT PO SCH (21:14)
[2019-10-03] MEDS: ASPIRIN EC PO SCH (21:14)
[2019-10-03] MEDS: NAMENDA XR PO SCH (21:14)
[2019-10-04] MEDS: DUONEB (A & A) INH SCH ×6 (03:16→23:45)
[2019-10-04] MEDS: NEXIUM PO SCH (06:09)
[2019-10-04] MEDS: SYNTHROID PO SCH (06:09)
[2019-10-04 06:54] LABS: BASO# 0.01 X1000 (0.0-0.2); BASO% 0.1 % (0.0-0.8); HEMATOCRIT 37.5 % (37.0-47.0); HEMOGLOBIN 11.8 g/dL (12.0-16.0); IMM GRAN# 0.06 X1000 (0.0-0.04); IMM GRAN% 0.8 % (0.0-0.5); LYMPH# 1.27 X1000 (1.2-3.4); LYMPH% 17.2 % (20.5-51.1); MCH 31.2 PG (27-31); MCHC 31.5 g/dL (33-37); MCV 99.2 FL (81-99); MONO# 0.25 X1000 (0.11-0.59); MONO% 3.4 % (1.7-9.3); MPV 9.8 FL (7.4-10.4); NEUT% 78.5 % (42.2-75.2); PLT 238 X1000 (130-400); RBC 3.78 XMIL (4.2-5.4); RDW 13.2 % (11.5-14.5); WBC 7.39 X1000 (4.8-10.8)
[2019-10-04] MEDS: PULMICORT INH SCH ×2 (07:35→19:27)
--- NOTE | 2019-10-04 07:46 | Diag Imaging Result Doc PS360 ---
EXAM: CHEST-PORTABLE INDICATION: abnormal exam TECHNIQUE: One view COMPARISON: 10/01/2019 FINDINGS: Patchy infiltrate throughout the right lung is again identified. It appears slightly more prominent in the right upper lung zone as compared to the previous study. Milder and more questionable left basilar infiltrate is stable. No new consolidation is identified. Cardiac silhouette is stable. IMPRESSION: Interval slight worsening of infiltrate on the right. Electronically signed by Everton Coughlin 10/04/2019 7:44 AM
[2019-10-04 08:01] LABS: AGAP 14; ALB/GLOB RATIO 1.2; ALBUMIN 4.1 g/dL (3.5-5.0); ALKALINE PHOSPHATASE 138 U/L (32-104); BUN 15 mg/dL (8-22); CALCIUM 9.1 mg/dL (8.8-10.2); CHLORIDE 94 mmol/L (98-107); COSMO 277; CREATININE 0.7 mg/dL (0.5-0.9); ESTIMATED GFR > 60; GLUCOSE 72 mg/dL (70-104); GOT 66 U/L (10-30); GPT 47 U/L (10-36); POTASSIUM 3.7 mmol/L (3.5-5.1); SODIUM 139 mmol/L (136-145); TCO2 31 mmol/L (25-35); TOTAL BILIRUBIN 0.36 mg/dL (0.20-1.00); TOTAL PROTEIN 7.5 g/dL (6.3-8.3)
--- NOTE | 2019-10-04 08:14 | PULMONOLOGY PROGRESS NOTE ---
DATE: 10/03/2019 SUBJECTIVE: The patient is awake, alert, and conversant. She feels better today. She has been ambulating back and forth to the bathroom. OBJECTIVE: Vital Signs: The patient has been afebrile for the last 24 hours. Blood pressure 154/74, heart rate 97, oxygen saturation 97% on 5 L. HEENT: Pupils are equal and reactive. Oropharynx appears clear. Neck is supple. Chest reveals rhonchi bilaterally with crackles in both lung bases. Cardiac Examination: S1-S2. Abdomen is soft. Extremities reveal trace edema. Laboratories: White blood count 12.77, hemoglobin 9.8, platelet count 220,000. Sodium 136, potassium 3.8, chloride 97, bicarbonate 28, BUN 11, creatinine 0.9. IMPRESSION: A 73-year-old with reflux, chronic pain syndrome, component of dementia with: 1. Bilateral pneumonia. 2. Acute hypoxemic respiratory failure. 3. Encephalopathy, which is resolving. 4. Component of fluid overload, with excellent diuresis over the last 24 hours. PLAN: 1. Continue antibiotics. 2. Continue bronchodilators. 3. Encourage reflux precautions. 4. Wean oxygen as tolerated. 5. Diuresis as tolerated. 6. Followup chest x-ray tomorrow. cc: Kel So MD
[2019-10-04] MEDS: COREG PO SCH ×2 (08:42→20:25)
[2019-10-04] MEDS: ZANAFLEX PO SCH ×2 (08:42→20:25)
[2019-10-04] MEDS: ESTRACE PO SCH (08:42)
[2019-10-04] MEDS: CYMBALTA PO SCH (08:43)
[2019-10-04] MEDS: LASIX IV SCH (08:43)
[2019-10-04] MEDS: BUSPAR PO SCH ×2 (08:43→20:25)
[2019-10-04] MEDS: ROCEPHIN 1 GM in NS 50 ML IV SCH (08:43)
[2019-10-04] MEDS: QUESTRAN PO SCH (08:44)
[2019-10-04] MEDS: PATIENT'S OWN MED PO SCH ×2 (08:44→20:25)
[2019-10-04] MEDS ORDERED: VANCOMYCIN IV PER PHARMACY MISC SCH (09:30)
[2019-10-04] MEDS: PERCOCET-10 PO PRN ×2 (09:30→19:36)
[2019-10-04] MEDS: SOLU-MEDROL IV SCH ×2 (10:16→16:33)
[2019-10-04] MEDS: MAXIPIME 2 GM in NS 100 ML IV SCH ×2 (10:16→23:10)
[2019-10-04] MEDS ORDERED: VANCOMYCIN 1,500 MG in NS 250 ML IV ONE (11:00)
[2019-10-04] MEDS: ASPIRIN EC PO SCH (20:25)
[2019-10-04] MEDS: ARICEPT PO SCH (20:25)
[2019-10-04] MEDS: NAMENDA XR PO SCH (20:27)
[2019-10-05] MEDS: SOLU-MEDROL IV SCH ×3 (01:30→17:05)
[2019-10-05] MEDS: DUONEB (A & A) INH SCH ×6 (04:43→22:38)
[2019-10-05 05:54] LABS: BASO# 0.02 X1000 (0.0-0.2); BASO% 0.5 % (0.0-0.8); HEMATOCRIT 38.2 % (37.0-47.0); HEMOGLOBIN 12.2 g/dL (12.0-16.0); IMM GRAN# 0.07 X1000 (0.0-0.04); IMM GRAN% 1.6 % (0.0-0.5); LYMPH# 0.85 X1000 (1.2-3.4); LYMPH% 19.6 % (20.5-51.1); MCH 31.3 PG (27-31); MCHC 31.9 g/dL (33-37); MCV 97.9 FL (81-99); MONO# 0.21 X1000 (0.11-0.59); MONO% 4.8 % (1.7-9.3); MPV 9.6 FL (7.4-10.4); NEUT# 3.18 X1000 (1.4-6.5); NEUT% 73.5 % (42.2-75.2); PLT 246 X1000 (130-400); RDW 12.6 % (11.5-14.5); WBC 4.33 X1000 (4.8-10.8)
[2019-10-05] MEDS: SYNTHROID PO SCH (06:05)
[2019-10-05] MEDS: NEXIUM PO SCH (06:05)
[2019-10-05 06:10] LABS: AGAP 14; ALB/GLOB RATIO 0.9; ALBUMIN 3.6 g/dL (3.5-5.0); ALKALINE PHOSPHATASE 130 U/L (32-104); BUN 23 mg/dL (8-22); CALCIUM 9.4 mg/dL (8.8-10.2); CHLORIDE 94 mmol/L (98-107); COSMO 280; CREATININE 0.9 mg/dL (0.5-0.9); ESTIMATED GFR > 60; GLUCOSE 136 mg/dL (70-104); GOT 38 U/L (10-30); GPT 43 U/L (10-36); POTASSIUM 3.6 mmol/L (3.5-5.1); SODIUM 137 mmol/L (136-145); TCO2 29 mmol/L (25-35); TOTAL BILIRUBIN 0.24 mg/dL (0.20-1.00); TOTAL PROTEIN 7.8 g/dL (6.3-8.3)
--- NOTE | 2019-10-05 06:58 | Diag Imaging Result Doc PS360 ---
EXAM: CHEST-PORTABLE HISTORY: dyspnea TECHNIQUE: Single view COMPARISON: 10/04/2019 FINDINGS: The lungs are well expanded. Mild pulmonary edema. Right infiltrates are slightly less prominent. Right base granuloma. No pleural effusions identified. IMPRESSION: Mild interval improvement Electronically signed by Brayden Toledo 10/05/2019 6:56 AM
[2019-10-05] MEDS: PULMICORT INH SCH ×2 (07:30→20:13)
[2019-10-05] MEDS: LASIX IV SCH (09:44)
[2019-10-05] MEDS: ESTRACE PO SCH (09:44)
[2019-10-05] MEDS: COREG PO SCH ×2 (09:44→20:26)
[2019-10-05] MEDS: BUSPAR PO SCH ×2 (09:44→20:26)
[2019-10-05] MEDS: ZANAFLEX PO SCH ×2 (09:44→20:26)
[2019-10-05] MEDS: CYMBALTA PO SCH (09:44)
[2019-10-05] MEDS: PATIENT'S OWN MED PO SCH ×2 (09:45→20:27)
[2019-10-05] MEDS: PERCOCET-10 PO PRN ×2 (11:48→17:47)
[2019-10-05] MEDS: MAXIPIME 2 GM/NS 2 GM/100 ML IVPB IV SCH ×2 (11:54→22:45)
[2019-10-05] MEDS: COZAAR PO SCH (11:58)
[2019-10-05] MEDS: VANCOMYCIN 1 GM/NS 1 GM/250 ML IVPB IV SCH (11:58)
[2019-10-05] MEDS: ALDACTONE PO SCH (11:58)
[2019-10-05] MEDS: NAMENDA XR PO SCH (20:26)
[2019-10-05] MEDS: ASPIRIN EC PO SCH (20:26)
[2019-10-05] MEDS: ARICEPT PO SCH (20:26)
[2019-10-06] MEDS: PERCOCET-10 PO PRN ×2 (00:01→09:13)
[2019-10-06] MEDS: SOLU-MEDROL IV SCH ×2 (01:46→09:14)
--- NOTE | 2019-10-06 02:56 | PULMONOLOGY PROGRESS NOTE ---
DATE: 10/05/2019 SUBJECTIVE: The patient is awake, alert, and conversant. She reports she feels better. She continues to have a slightly wet cough. OBJECTIVE: Vital Signs: The patient has been afebrile for the last 24 hours. Blood pressure 175/88, heart rate 89, respiratory rate 20, oxygen saturation 97% on 2 L per nasal cannula. HEENT: Pupils are equal and reactive. Oropharynx is clear. Neck: Supple. Chest: Reveals occasional rhonchi bilaterally. Cardiac: S1-S2. Abdomen: Soft. Extremities: Without edema. LABORATORIES: Chest x-ray reveals mild decrease in right upper lobe infiltrate. IMPRESSION: A 73-year-old with: 1. Bilateral pneumonia. 2. Acute hypoxemic respiratory failure. 3. Component of fluid overload. 4. Encephalopathy which has resolved. PLAN: 1. Continue antibiotics and bronchodilators. 2. Encourage reflux precautions. 3. Wean oxygen as tolerated. 4. Follow up chest x-ray tomorrow. cc: Kel So MD
[2019-10-06] MEDS: DUONEB (A & A) INH SCH ×3 (03:40→11:06)
[2019-10-06] MEDS: NEXIUM PO SCH (06:20)
[2019-10-06] MEDS: SYNTHROID PO SCH (06:20)
[2019-10-06] MEDS: PULMICORT INH SCH (08:16)
[2019-10-06] MEDS: LASIX IV SCH (09:14)
[2019-10-06] MEDS: ALDACTONE PO SCH (09:15)
[2019-10-06] MEDS: BUSPAR PO SCH (09:15)
[2019-10-06] MEDS: CYMBALTA PO SCH (09:15)
[2019-10-06] MEDS: COREG PO SCH (09:15)
[2019-10-06] MEDS: COZAAR PO SCH (09:15)
[2019-10-06] MEDS: ZANAFLEX PO SCH (09:15)
[2019-10-06] MEDS: ESTRACE PO SCH (09:16)
[2019-10-06] MEDS: PATIENT'S OWN MED PO SCH (09:17)
[2019-10-06 09:31] LABS: BASO# 0.05 X1000 (0.0-0.2); BASO% 0.6 % (0.0-0.8); HEMATOCRIT 40.4 % (37.0-47.0); IMM GRAN# 0.15 X1000 (0.0-0.04); IMM GRAN% 1.7 % (0.0-0.5); LYMPH# 1.48 X1000 (1.2-3.4); LYMPH% 16.9 % (20.5-51.1); MCH 31.3 PG (27-31); MCHC 32.2 g/dL (33-37); MCV 97.1 FL (81-99); MONO# 0.45 X1000 (0.11-0.59); MONO% 5.1 % (1.7-9.3); NEUT# 6.63 X1000 (1.4-6.5); NEUT% 75.7 % (42.2-75.2); PLT 330 X1000 (130-400); RBC 4.16 XMIL (4.2-5.4); RDW 12.3 % (11.5-14.5); WBC 8.76 X1000 (4.8-10.8)
[2019-10-06 09:50] LABS: LYMPHS 25 % (21-51); MONO 4 % (1-9); SEGS 71 % (42-75)
[2019-10-06 09:52] LABS: HYPOCHROM 1+
--- NOTE | 2019-10-06 09:55 | Diag Imaging Result Doc PS360 ---
EXAM: CHEST-2 VIEWS 10/06/2019 HISTORY: abnormal exam TECHNIQUE: PA and lateral chest COMMENT: There is a healing fracture of the right sixth rib anteriorly. The heart size and pulmonary vascularity are within normal limits. There is a granuloma in the right lower lobe. The opacity which was present previously in the right upper lobe on 10/05/2019 has largely resolved. There is still some question of atelectasis or pneumonia in the right lower lobe medially. IMPRESSION: Improved pneumonia. Electronically signed by Jacinto Valdez 10/06/2019 9:53 AM
[2019-10-06 09:58] LABS: ALB/GLOB RATIO 0.9; ALBUMIN 3.8 g/dL (3.5-5.0); CALCIUM 9.9 mg/dL (8.8-10.2); CREATININE 1.1 mg/dL (0.5-0.9); POTASSIUM 3.3 mmol/L (3.5-5.1); TOTAL BILIRUBIN 0.22 mg/dL (0.20-1.00); TOTAL PROTEIN 7.8 g/dL (6.3-8.3)
[2019-10-06] MEDS: MAXIPIME 2 GM/NS 2 GM/100 ML IVPB IV SCH (10:00)
[2019-10-06] MEDS: VANCOMYCIN 1 GM/NS 1 GM/250 ML IVPB IV SCH (11:16)
[2019-10-06 12:34] VITALS: BP 161/81
[2019-10-06 13:16] LABS: HEPATITIS PROFILE ACUTE SEE COMMENTS
--- NOTE | 2019-10-07 20:43 | DISCHARGE SUMMARY ---
ADMISSION DATE: 10/01/2019 DISCHARGE DATE: 10/06/2019 DISPOSITION: Home. FOLLOW-UP: Dr. Wall. CONSULTATIONS: Pulmonary Medicine consulted. Patient was seen by Dr. So. Cardiology was consulted. Patient was seen by Dr. Flores. INVASIVE PROCEDURES DONE DURING THIS ADMISSION: None. IMAGING STUDIES OF SIGNIFICANCE: A chest x-ray initially did show infiltrates most consistent most prominent at the suprahilar and infrahilar regions on the right. These are suspicious for pneumonia, although pulmonary edema may also be a consideration. A V/Q scan showed low probability for pulmonary emboli. A CAT scan without contrast showed worsening pulmonary parenchymal opacity and pulmonary edema. Mediastinal and hilar adenopathy is similar to previous study. Bilateral pleural effusions and mild ascites. Multiple x-rays were done afterwards. One done today shows improved pneumonia. ADMISSION DIAGNOSIS: 1. Right lower lobe pneumonia. 2. Acute hypoxemic and hypercarbic respiratory failure. 3. Acute kidney injury. 4. Chronic back pain. DIAGNOSIS AT THE TIME OF DISCHARGE: 1. Acute hypoxemic respiratory failure. 2. Pulmonary edema secondary to congestive heart failure. 3. Multifocal pneumonia. 4. Microcytic anemia. 5. Iron deficiency. 6. Hypothyroidism. 7. Acute kidney injury, improved. DISCHARGE MEDICATIONS: 1. Gabapentin 600 mg p.o. daily. 2. Donepezil 10 mg p.o. at bedtime. 3. Carvedilol 12.5 b.i.d. 4. BuSpar 50 mg b.i.d. 5. Cymbalta 60 mg p.o. daily. 6. Aldactone 50 mg b.i.d. 7. Estradiol 1 mg p.o. daily. 8. Namenda 28 mg p.o. at bedtime. 9. Iron. 10. Amlodipine 10 mg p.o. daily. 11. Levothyroxine 300 mcg p.o. daily. 12. Spironolactone 50 mg p.o. daily. 13. Cefdinir 300 b.i.d. 14. Doxycycline 100 mg b.i.d. 15. Prednisone 20 mg p.o. daily. PRESENTING COMPLAINT: Cough, shortness of breath. HISTORY OF PRESENTING COMPLAINT: Ms. Hedrick is a 73-year-old female who presented to the emergency department because of shortness of breath, was found to be hypoxemic with O2 saturation 82% on 6 L. An initial x-ray did suggest infiltrates in the supra and infra regions in the right which was suspicious for pneumonia. She was subsequently admitted to [facility] for medical management. HOSPITAL COURSE: Ms. Hedrick was started on IV antibiotics. She also got a couple doses of Lasix because her pro B was elevated. Initially we thought she could be in congestive heart failure. An echocardiogram, however, did show ejection fraction of 55 to 60% with normal wall motion abnormality. A CT scan of the chest was done which showed parenchymal opacities, pneumonia and pulmonary edema. Ms. Hedrick was also seen by cardiac by Pulmonary Medicine during the hospital course. She was gradually titrated off on oxygen. The shortness of breath also continued to improve. She did diurese very adequately on the diuretic therapy. She became negative balance of over 7000 mL of fluid. Today she is feeling a whole lot better. A repeat chest x-ray this morning shows improvement of the pneumonia. She has been completely afebrile. Her vitals are stable. We think she is in stable condition to be discharged. was at the bedside at the time of the encounter and they are both in agreement. Ms. Hedrick will be on antibiotic therapy for a total of 7 days. She will follow up with her primary care doctor. During the hospital course, because of her CAT scan report, there was assumption that she could potentially have sarcoid but her angiotensin converting enzyme was normal. Her vitamin D 125 was normal. Her procalcitonin was remarkably elevated, so we think the finding was more consistent with multifocal bacterial infection in the lungs than anything else. Time spent for discharge is 38 minutes. cc: Taj Iglesias MD
== END 2019-10-06 14:22 | disposition home or self-care (01) | DRG 193 ==
LOC: ED 05:48 → EDIPHOLD 09:21 → SUATTDRO 09:21 → 2N 15:40 → 1N 10-06 02:56
PROVIDERS: ATTEND Internal Medicine